=== PATIENT | male | born 1970 | race Asian ===

== ENCOUNTER 2016-10-08 15:21 | Emergency (ER) | payer MEDICAID ==
[~2016-10-08] VITALS: Ht 167.6 cm; Wt 69.0 kg
[2016-10-08 15:34] VITALS: BP 122/77
[2016-10-08] MEDS: TETRACAINE 0.5% OPHTH DROPS 4ML OP ONE (17:39)
[2016-10-08] MEDS: FLUORESCEIN SODIUM 1MG/STRIP OP ONE (17:39)
== END 2016-10-08 20:00 | disposition home or self-care (01) ==
LOC: ER 19:32
DX: H57.11 Ocular pain, right eye (principal); F17.200 Nicotine dependence, unspecified, uncomplicated
CPT/HCPCS: 99283

== ENCOUNTER 2018-07-05 18:30 | Emergency (ER) | payer SELFPAY ==
[~2018-07-05] VITALS: Ht 167.6 cm; Wt 68.0 kg
[2018-07-06] MEDS ORDERED: KETOROLAC 30MG/ML VIAL IV STA (03:18)
[2018-07-06] MEDS ORDERED: SODIUM CHLORIDE 0.9% 1,000 ML IV ONE (03:18)
[2018-07-06 04:08] LABS: BASOPHILS % 0.8 % (0.0-2.0); EOSINOPHILS % 1.9 % (0.0-5.0); HEMOGLOBIN. 15.7 g/dL (14.0-18.0); LYMPHOCYTES % 30.7 % (20.0-50.0); MEAN CORPUSCULAR HEMOGLOBIN 30.1 pg (28.0-32.0); MEAN CORPUSCULAR VOLUME 88.6 fL (80.0-94.0); MEAN PLATELET VOLUME 7.5 fl (7.4-10.4); MONOCYTES % 10.6 % (2.0-8.0); PLATELET 225 x1000/uL (130-400); RED CELL DISTRIBUTION WIDTH 13.2 % (11.6-14.6)
[2018-07-06 04:16] LABS: CHLORIDE 104 mEq/L (98-107)
[2018-07-06] MEDS ORDERED: IOHEXOL-300 100 ML BOTTLE ONE (06:08)
[2018-07-06 07:14] VITALS: BP 101/65
== END 2018-07-06 07:18 | disposition home or self-care (01) ==
LOC: ER 18:30
DX: R10.11 Right upper quadrant pain (principal); F17.210 Nicotine dependence, cigarettes, uncomplicated
CPT/HCPCS: 36415; 74177; 80053; 83690; 85025; 96374; 99284; J1885; J7030; Q9967; Z7610